=== PATIENT | female | born 1945 | race Caucasian/White ===

== ENCOUNTER 2020-01-15 19:28 | Emergency (ER) | payer OTHER ==
[~2020-01-15] VITALS: Ht 160 cm; Wt 103.4 kg
[2020-01-15] MEDS ORDERED: NORCO 10-325 T1 EACH PO (21:15)
[2020-01-15] MEDS ORDERED: ROXICODONE5 MG PO (21:25)
[2020-01-15] MEDS ORDERED: EZETIMIBE10 MG PO (21:37)
[2020-01-15] MEDS ORDERED: VICTOZA0.6 MG/0.1 SUBQ (21:37)
[2020-01-15] MEDS ORDERED: GLIMEPIRIDE1 MG PO (21:38)
[2020-01-15] MEDS ORDERED: LEVOTHYROXINE137 MCG PO (21:38)
[2020-01-15] MEDS ORDERED: ENTRESTO 49 MG1 EACH PO (21:39)
[2020-01-15] MEDS ORDERED: METFORMIN HCL1000 MG PO (21:39)
[2020-01-15] MEDS ORDERED: CARVEDILOL12.5 MG PO (21:40)
[2020-01-15] MEDS ORDERED: ASA81BEC PO (21:40)
[2020-01-15] MEDS ORDERED: OMEPRAZOLE 20 M20 M1 PO (21:40)
[2020-01-15 22:00] VITALS: BP 157/81
== END 2020-01-15 22:00 | disposition home or self-care (01) ==
LOC: ER 19:28
DX: S52.502A Unspecified fracture of the lower end of left radius, initial encounter for closed fracture (principal); S52.002A Unspecified fracture of upper end of left ulna, initial encounter for closed fracture; E03.9 Hypothyroidism, unspecified; E11.9 Type 2 diabetes mellitus without complications; I50.9 Heart failure, unspecified; Z79.899 Other long term (current) drug therapy; Z88.2 Allergy status to sulfonamides; Z88.8 Allergy status to other drugs, medicaments and biological substances; W01.0XXA Fall on same level from slipping, tripping and stumbling without subsequent striking against object, initial encounter; Y93.89 Activity, other specified; Y92.89 Other specified places as the place of occurrence of the external cause; Y99.8 Other external cause status

== ENCOUNTER 2020-01-18 19:24 | Emergency (ER) | payer OTHER ==
[~2020-01-18] VITALS: Ht 160 cm; Wt 59.9 kg
[~2020-01-18 19:24] MED LIST: ASA81BEC PO; CARVEDILOL12.5 MG PO; ENTRESTO 49 MG1 EACH PO; EZETIMIBE10 MG PO; GLIMEPIRIDE1 MG PO; LEVOTHYROXINE137 MCG PO; METFORMIN HCL1000 MG PO; NORCO 10-325 T1 EACH PO; OMEPRAZOLE 20 M20 M1 PO; ROXICODONE5 MG PO; VICTOZA0.6 MG/0.1 SUBQ
[2020-01-18 21:26] VITALS: BP 166/75
== END 2020-01-18 21:27 | disposition home or self-care (01) ==
LOC: ER 19:24
DX: S52.502D Unspecified fracture of the lower end of left radius, subsequent encounter for closed fracture with routine healing (principal); S52.692D Other fracture of lower end of left ulna, subsequent encounter for closed fracture with routine healing; R60.0 Localized edema; I50.9 Heart failure, unspecified; E11.9 Type 2 diabetes mellitus without complications; E03.9 Hypothyroidism, unspecified; Z79.899 Other long term (current) drug therapy; Z88.2 Allergy status to sulfonamides; Z88.8 Allergy status to other drugs, medicaments and biological substances; X58.XXXD Exposure to other specified factors, subsequent encounter

== ENCOUNTER → 2020-01-20 | Outpatient (CLI) | payer OTHER ==
[~2020-01-20] MED LIST changes: +CALCIUM WITH V1 EAC1 PO; +CEVIMELINE HCL30 MG PO; +FUROSEMIDE 20 M20 M1 PO; +IRON325 M1 PO; +MAG 64 PO; +MAG6464 MG PO; +SPIRONOLACTONE25 MG PO; +SUPER B COMPLE1 EAC2 PO; +TYLENOL325 M1 PO
== END ==
LOC: LAB 07:22
PROVIDERS: ATTEND Student in an Organized Health Care Education/Training Program
DX: Z01.812 Encounter for preprocedural laboratory examination (principal); Z11.59 Encounter for screening for other viral diseases

== ENCOUNTER 2020-01-24 13:25 | Day surgery (SDC) | payer OTHER ==
[~2020-01-24] VITALS: Ht 160 cm; Wt 103.4 kg
[2020-01-24 15:03] VITALS: BP 138/49
[2020-01-24 16:47] VITALS: BP 138/49
--- NOTE | 2020-01-25 16:04 | EKG ---
[facility] [place] [address] ELECTROCARDIOGRAM REPORT Name: CAMRON BUTTERFIELD Room #: DEP [facility]..#: [id number] Admission: 01/24/20 Attend Phys: Lorenza Fry, Discharge: 01/24/20 Date of : 49 Report #: [id number] THIS REPORT FOR: cc: Graciela Zheng MD, Lisa A. MD Couchonnal, Luis F. MD ~ THIS REPORT FOR: //name// [facility] Test Date: 2020-01-24 Test Time: 14:11:28 Pat Name: CAMRON BUTTERFIELD Department: Room: 150 1 Gender: F Retail Leader: URSULA : 1945 Requested By: Lorenza Fry Order Number: [id number] MD: Madan Zavala Measurements Intervals [place] Rate: 86 P: 50 CT: 139 QRS: 112 QRSD: 129 T: -39 QT: 418 QTc: 500 Interpretive Statements Atrial-sensed ventricular-paced complexes No further analysis attempted due to paced rhythm Baseline wander in lead(s) V6 Compared to ECG 08/05/1996 22:19:00 Sinus rhythm no longer present Left ventricular hypertrophy no longer present Electronically Signed On 01-25-2020 16:04:44 CDT by Madan Zavala [email or web address] <ELECTRONICALLY SIGNED> By: Madan Zavala MD 01/25/20 1604 10 141 Madan Zavala MD /EPI
--- NOTE | 2020-01-27 13:29 | O ---
[facility] [place] [address] OPERATIVE REPORT Name: CAMRON BUTTERFIELD Room #: DEP [facility]..#: [id number] Admission: 01/24/20 Attend Phys: Lorenza Fry, Discharge: 01/24/20 Date of : 49 Report #: [id number] THIS REPORT FOR: cc: Graciela Zheng MD, Lisa A. MD Deardorff,Lorenza Urrutia MD ~ CC: Graciela Fry DATE OF SERVICE: 01/24/2020 PREOPERATIVE DIAGNOSIS: Left distal radius fracture, intraarticular, with 3 or more fragments displaced. POSTOPERATIVE DIAGNOSIS: Left distal radius fracture, intraarticular, with 3 or more fragments displaced. PROCEDURE PERFORMED: Open reduction and internal fixation of left distal radius fracture, displaced intra-articular with 3 or more fragments. SURGEON: Lorenza Fry MD ANESTHESIA: General mask anesthesia. ESTIMATED BLOOD LOSS: Minimal. TOURNIQUET TIME: 44 minutes. COMPLICATIONS: None. CONDITION: Stable. DISPOSITION: Recovery room. IMPLANTS USED: Arthrex volar distal radius locking plate. INDICATIONS: The patient is a 74-year-old female with a volar Machado type distal radius fracture with significant displacement. She elected for operative treatment. The risks, benefits, alternatives and complications were discussed including but not limited to, stiffness, infection, damage to vessels or nerves, nonunion, malunion, hardware failure, hardware rotation. Informed consent was obtained. The patient's daughter who was present at bedside. The correct extremity was identified and labeled by myself after verbal review of systems with the patient as well as visual confirmation and signed informed consent. DESCRIPTION OF PROCEDURE: The patient was brought back to the operating room [address] [address] OPERATIVE REPORT Name: CAMRON BUTTERFIELD Room #: DEP [facility]..#: [id number] Admission: 01/24/20 Attend Phys: Lorenza Fry, Discharge: 01/24/20 Date of : 49 Report #: [id number] and placed on the supine position. She received preoperative antibiotics. Tourniquet was placed for padding on the patient's left upper extremity. Left upper extremity was sterilely prepped and draped in the usual fashion. Final timeout was taken to verify the correct patient, operative procedure, operative site, all concurred. The arm was elevated, exsanguinated and tourniquet inflated. Next, a volar approach was done to the distal radius over the FCR tendon. Dissection was carried down through subcutaneous tissue with tenotomy scissors. There was a large vein in the mid portion crossing in an oblique manner. It was tied with silk ties and then cut in order to allow dissection. The FCR tendon sheath was incised. The subsheath was incised. Volar contents were retracted ulnarly and the radial aspect of the pronator quadratus was incised, was elevated off the fracture site. The fracture site was easily identified. It was cleaned of clot and debris and provisionally reduced. X-ray was brought in, which showed good ability to reduce the fracture. Next, a standard distal radius locking plate was applied to the bone. It was checked on fluoroscopy and found to be too large, so a narrow plate was chosen. It was then positioned on to the radius and once it was found to be in appropriate position, it was affixed to the radius with cortical screw in the gliding hole. Next, distal screws were drilled, measured and appropriate size screws were placed. The ulnar most screw originally resulted in some crepitus with range of motion. Multiple live fluoroscopic views were taken as well as it was measured. It did not appear to be in the DRUJ. It did appear to be long and after it was changed to a shorter screw there was no clicking sensation. Most likely it was irritating the dorsal aspect of the wrist over the DRUJ. Next, the remainder of the screws were drilled, measured and appropriate size screws were placed. The proximal radial screw was directly in the fracture site. It was not utilized. The plate was found to be in good position and performed a nice buttress function. Next, proximal shaft screws were drilled, measured and appropriate sized locking screws were placed. The DRUJ was assessed. It was felt to be stable in all planes of rotation. AP, lateral and lateral tilt views show good position of the hardware and the fracture. The wound was thoroughly irrigated. The pronator quadratus was loosely reapproximated over the plate and under the course of the FPL tendon. The skin was closed with 4-0 nylon suture. Subcutaneous tissue was infiltrated with approximately 3 mL of 0.25% Marcaine. She was placed in a bulky dressing and a volar slab splint. All fingers were pink with brisk capillary refill at the conclusion of case after deflation of tourniquet. All sponge and needle counts were correct. The patient was transferred to postoperative recovery room in stable condition. <ELECTRONICALLY SIGNED> By: Lorenza Fry MD 01/27/20 1329 1649 1708 Lorenza Fry MD /nt
== END 2020-01-24 18:39 | disposition home or self-care (01) ==
LOC: OR 13:25 → TBA 13:26 → OR 16:17
PROVIDERS: ATTEND Orthopaedic Surgery Hand Surgery
DX: S52.572A Other intraarticular fracture of lower end of left radius, initial encounter for closed fracture (principal); I11.0 Hypertensive heart disease with heart failure; I50.9 Heart failure, unspecified; E11.9 Type 2 diabetes mellitus without complications; K21.9 Gastro-esophageal reflux disease without esophagitis; E03.9 Hypothyroidism, unspecified; J45.909 Unspecified asthma, uncomplicated; Z98.890 Other specified postprocedural states; Z87.19 Personal history of other diseases of the digestive system; Z79.899 Other long term (current) drug therapy; Z88.2 Allergy status to sulfonamides; X58.XXXA Exposure to other specified factors, initial encounter; Y93.89 Activity, other specified; Y92.89 Other specified places as the place of occurrence of the external cause; Y99.8 Other external cause status
CPT/HCPCS: 50010; 50101; 50386; 56524; 56526; 57006; 57091; 57178; 58235; 58236; 58237; 58238; 62110; 62900; 64039; 70005